=== PATIENT | male | born 1980 | race African-American/Black ===

== ENCOUNTER 2016-06-17 17:31 | Emergency (ER) | payer OTHER ==
[~2016-06-17] VITALS: Ht 180.3 cm; Wt 83.5 kg
[~2016-06-17 17:31] MED LIST: DEPAKOTE500 MG PO; NOHOMEMEDS; PERCOCET 5/31 TABLET PO; PROZAC10 M2
[2016-06-17] MEDS ORDERED: TYLENOL WITH C1 EACH PO (19:59)
[2016-06-17 20:11] VITALS: BP 117/79
== END 2016-06-17 20:12 | disposition home or self-care (01) ==
LOC: RME 17:31 → EME 17:31 → RME 20:12
DX: S60.221A Contusion of right hand, initial encounter (principal); W22.8XXA Striking against or struck by other objects, initial encounter
CPT/HCPCS: 73130; 99281; 99284

== ENCOUNTER 2016-11-27 23:19 | Emergency (ER) | payer OTHER ==
[~2016-11-27] VITALS: Ht 177.8 cm; Wt 80.7 kg
[~2016-11-27 23:19] MED LIST changes: +TYLENOL WITH C1 EACH PO
[2016-11-28] MEDS ORDERED: PEN-VEE K,VEET500 MG PO (01:41)
[2016-11-28] MEDS ORDERED: NORCO 5/3251 TABLET PO (01:41)
[2016-11-28 01:55] VITALS: BP 133/88
== END 2016-11-28 01:59 | disposition home or self-care (01) ==
LOC: EME 23:19
DX: K08.89 Other specified disorders of teeth and supporting structures (principal); F17.200 Nicotine dependence, unspecified, uncomplicated
CPT/HCPCS: 99281; 99284

== ENCOUNTER 2016-12-02 20:35 | Emergency (ER) | payer OTHER ==
[~2016-12-02] VITALS: Ht 180.3 cm; Wt 78.8 kg
[~2016-12-02 20:35] MED LIST changes: +NORCO 5/3251 TABLET PO; +PEN-VEE K,VEET500 MG PO
[2016-12-02 23:45] VITALS: BP 133/72
== END 2016-12-02 23:46 ==
LOC: EME 20:35
DX: S61.411A Laceration without foreign body of right hand, initial encounter (principal); W45.8XXA Other foreign body or object entering through skin, initial encounter; Y92.149 Unspecified place in prison as the place of occurrence of the external cause; Y99.8 Other external cause status; Z23 Encounter for immunization; F17.200 Nicotine dependence, unspecified, uncomplicated
CPT/HCPCS: 73130; 99281; 99285

== ENCOUNTER 2017-03-15 13:51 | Emergency (ER) | payer OTHER ==
[~2017-03-15] VITALS: Ht 180.3 cm; Wt 80.4 kg
[2017-03-15 16:06] VITALS: BP 137/91
== END 2017-03-15 16:27 | disposition left against medical advice (07) ==
LOC: EME 13:51
DX: S61.210A Laceration without foreign body of right index finger without damage to nail, initial encounter (principal); S61.011A Laceration without foreign body of right thumb without damage to nail, initial encounter; X99.1XXA Assault by knife, initial encounter; F20.0 Paranoid schizophrenia; F32.9 Major depressive disorder, single episode, unspecified; F17.200 Nicotine dependence, unspecified, uncomplicated; Z88.8 Allergy status to other drugs, medicaments and biological substances
CPT/HCPCS: 99281; 99283

== ENCOUNTER 2017-03-17 17:51 | Emergency (ER) | payer OTHER ==
[~2017-03-17] VITALS: Ht 180.3 cm; Wt 81.7 kg
[2017-03-17 19:56] VITALS: BP 129/81
== END 2017-03-17 19:56 | disposition home or self-care (01) ==
LOC: EME 17:51
PROC: 0HQFXZZ Repair Right Hand Skin, External Approach (ICD-10-PCS; principal; 2017-03-17)
DX: S61.011A Laceration without foreign body of right thumb without damage to nail, initial encounter (principal); W25.XXXA Contact with sharp glass, initial encounter; Y93.G1 Activity, food preparation and clean up; F17.200 Nicotine dependence, unspecified, uncomplicated
CPT/HCPCS: 73140; 99281; 99284

== ENCOUNTER 2017-04-02 18:08 | Emergency (ER) | payer OTHER ==
[~2017-04-02] VITALS: Ht 180.3 cm; Wt 83.8 kg
[2017-04-02 18:43] LABS: MCH 30.2 PG (29.0-34.0); MCHC 36.8 G/DL (30.0-36.0); MCV 82.1 FL (86-99); MEAN PLAT.VOLUME 9.5 uM^3 (9.0-12.4); PLATELET COUNT 204 K/uL (156-360); RED BLOOD COUNT 4.63 M/uL (4.00-5.50); WHITE BLOOD COUNT 5.5 K/uL (4.1-10.2)
[2017-04-02 18:54] LABS: CHLORIDE 106 mEq/L (99-109); POTASSIUM 3.6 mEq/L (3.7-5.4); SODIUM 138 mEq/L (136-147)
[2017-04-02 18:56] LABS: GLUCOSE 123 mg/dL (70-99)
[2017-04-02 18:57] LABS: ANION GAP 11 MEQ/L (2-14)
[2017-04-02 18:58] LABS: TOTAL BILIRUBIN 0.3 mg/dL (0.0-1.0)
[2017-04-02 18:59] LABS: ALKALINE PHOSPHATASE 83 IU/L (3-129); SERUM ETHYL ALCOHOL < 10 mg/dL
[2017-04-02 19:00] LABS: GFR ESTIMATE (CALCULATED) > 59 mL/min/
[2017-04-02 19:01] LABS: UREA NITROGEN (BUN) 13 mg/dL (9-23)
[2017-04-02 19:03] LABS: LIPASE 15 U/L (1.0-51.0)
[2017-04-02 19:31] VITALS: BP 124/77
== END 2017-04-02 19:32 | disposition home or self-care (01) ==
LOC: EME 18:08
PROVIDERS: Emergency Medicine
DX: R10.32 Left lower quadrant pain (principal); K21.9 Gastro-esophageal reflux disease without esophagitis; F10.10 Alcohol abuse, uncomplicated; F17.200 Nicotine dependence, unspecified, uncomplicated
CPT/HCPCS: 80053; 83690; 85027; 99281; 99284; G0480